=== PATIENT | male | born 1940 | race Caucasian/White ===

== ENCOUNTER 2023-06-29 16:48 | Emergency (ER) | payer MEDICARE ==
[~2023-06-29] VITALS: Ht 185.4 cm; Wt 81.6 kg
[2023-06-29] MEDS ORDERED: ACETAMINOPHEN ES 500 MG TABLET ONE (17:27)
[2023-06-29] MEDS ORDERED: MORPHINE SULFATE INJ 4 MG/ML DISP.SYRIN ONE (17:27)
[2023-06-29] MEDS ORDERED: CYCLOBENZAPRINE 10 MG TABLET ONE (17:28)
[2023-06-29] MEDS: MORPHINE SULFATE INJ 2 MG/ML DISP.SYRIN IV ONE (17:30)
[2023-06-29] MEDS: ACETAMINOPHEN ES 500 MG TABLET PO ONE (17:37)
[2023-06-29] MEDS: CYCLOBENZAPRINE 10 MG TABLET PO ONE (17:38)
[2023-06-29 19:46] VITALS: BP 122/87; TEMP 98.1; O2SAT 98
== END 2023-06-29 19:46 | disposition home or self-care (01) ==
LOC: ER 16:54
DX: S39.012A Strain of muscle, fascia and tendon of lower back, initial encounter (principal); M51.26 Other intervertebral disc displacement, lumbar region; I48.91 Unspecified atrial fibrillation; Z88.2 Allergy status to sulfonamides; W18.30XA Fall on same level, unspecified, initial encounter; Y93.89 Activity, other specified; Y92.89 Other specified places as the place of occurrence of the external cause; Y99.8 Other external cause status
CPT/HCPCS: 99285; 96374; 72131; 73521; J2270

== ENCOUNTER 2024-05-05 22:46 | Emergency (ER) | payer MEDICARE, OTHER ==
[~2024-05-05] VITALS: Ht 185.4 cm; Wt 86.2 kg
[2024-05-05 23:26] VITALS: TEMP 98
[2024-05-06] MEDS ORDERED: PROPOFOL 20 ML IV ONE (00:14)
[2024-05-06 00:37] LABS: BASOPHILS # (AUTO) 0.1 K/uL (0.0-0.2); EOSINOPHILS # (AUTO) 0.1 K/uL (0.0-0.7); EOSINOPHILS % (AUTO) 1.6 % (0.0-6.0); HEMATOCRIT 46 % (39-51); HEMOGLOBIN 15.5 g/dL (13.5-17.5); LYMPHOCYTES # (AUTO) 0.8 K/uL (0.8-4.8); LYMPHOCYTES % (AUTO) 10.5 % (20.0-44.0); MEAN CORPUSCULAR HEMOGLOBIN 35 PG (26.0-33.0); MEAN CORPUSCULAR HGB CONC 34 g/dl (31.0-36.0); MEAN CORPUSCULAR VOLUME 104 fL (80-96); MONOCYTES # (AUTO) 0.8 K/uL (0.1-1.30); MONOCYTES % (AUTO) 10.3 % (2.0-12.0); NEUTROPHILS % (AUTO) 76.6 % (43.0-81.0); PLATELET COUNT (AUTO) 243 K/uL (150-450); RED BLOOD CELL COUNT(AUTO) 4.44 MIL/uL (4.5-6.0); RED CELL DISTRIBUTION WIDTH 14.3 % (11.5-15.0); WHITE BLOOD COUNT (AUTO) 7.9 K/uL (4.3-11.0)
[2024-05-06 01:30] LABS: ALANINE AMINOTRANSFERASE 34 U/L (12-78); ALBUMIN 3.5 g/dL (3.4-5.0); ALKALINE PHOSPHATASE 132 U/L (46-116); ASPARTATE AMINOTRANSFERASE 40 U/L (15-37); BILIRUBIN,TOTAL 0.5 mg/dL (0.2-1.0); CALCIUM, SERUM 8.7 mg/dL (8.5-10.1); CARBON DIOXIDE 33 mmol/L (21-32); CHLORIDE 100 mmol/L (98-107); CREATININE 2.5 mg/dL (0.6-1.3); GLUCOSE 127 mg/dL (74-106); NT-PRO BNP 4743 pg/mL (0-125); POTASSIUM 5.6 mmol/L (3.5-5.1); SODIUM SERUM 138 mmol/L (136-145); TOTAL PROTEIN, SERUM 7.5 g/dL (6.4-8.2); UREA NITROGEN, BLOOD 46 mg/dL (7-18)
[2024-05-06] MEDS: PROPOFOL 200 MG/20 ML VIAL IV ONE (01:50)
[2024-05-06] MEDS: SODIUM POLYSTYRENE SULF. PWD 15 GM UDC PO ONE (02:30)
[2024-05-06] MEDS ORDERED: ONDANSETRON HCL/PF 4 MG/2 ML VIAL ONE (02:42)
[2024-05-06] MEDS ORDERED: MORPHINE SULFATE INJ 2 MG/ML DISP.SYRIN ONE ×2 (02:43→05:23)
[2024-05-06] MEDS ORDERED: SODIUM POLYSTYRENE SULFONATE 15 G/60 ML BOTTLE ONE (02:43)
[2024-05-06] MEDS: MORPHINE SULFATE INJ 2 MG/ML DISP.SYRIN IV ONE ×2 (02:48→05:26)
[2024-05-06] MEDS: ONDANSETRON HCL/PF - ER 4 MG/2 ML VIAL IV ONE (02:49)
[2024-05-06] MEDS: IV NS 0.9% 1,000 ML IV ONE (04:00)
[2024-05-06] MEDS ORDERED: ACETAMINOPHEN 325 MG TABLET PO PRN (04:00)
[2024-05-06] MEDS ORDERED: Z GUARD REMEDY 4 OZ OINT TP PRN (04:00)
[2024-05-06] MEDS ORDERED: ONDANSETRON HCL/PF 4 MG/2 ML VIAL IVP PRN (04:00)
[2024-05-06] MEDS: PANTOPRAZOLE 40 MG TABLET.DR PO SCH (07:30)
[2024-05-06] MEDS ORDERED: PANTOPRAZOLE 40 MG TABLET.DR PO ONE (07:44)
[2024-05-06] MEDS ORDERED: HYDROCODONE/APAP 5/325MG TABLET ONE (07:59)
[2024-05-06] MEDS: HYDROCODONE/APAP 5/325MG TABLET PO PRN (08:02)
[2024-05-06 09:30] VITALS: BP 104/60; O2SAT 97
== END 2024-05-06 09:58 | disposition left against medical advice (07) ==
LOC: ER 23:12 → UNDOADMIN 05-06 05:06 → TRANSITION 05-06 05:06
DX: T84.020A Dislocation of internal right hip prosthesis, initial encounter (principal); E87.5 Hyperkalemia; M19.90 Unspecified osteoarthritis, unspecified site; M25.551 Pain in right hip; N18.4 Chronic kidney disease, stage 4 (severe); I48.91 Unspecified atrial fibrillation; E87.6 Hypokalemia; Z96.641 Presence of right artificial hip joint; W18.39XA Other fall on same level, initial encounter; Y93.89 Activity, other specified; Y92.098 Other place in other non-institutional residence as the place of occurrence of the external cause; Y99.8 Other external cause status
CPT/HCPCS: 27265; 36415; 71045; 73501; 76770; 80053; 83880; 84484; 85025; 93005; 96374; 96375; 96376; 99152; 99285; J2270; J2405; J2704; J7040; 73020; 73502; G0378; G0500; J7030